=== PATIENT | female | born 1975 | race Caucasian/White ===

== ENCOUNTER 2017-04-05 03:07 | Emergency (ER) | payer OTHER ==
[~2017-04-05] VITALS: Ht 162.6 cm; Wt 59.1 kg
[~2017-04-05 03:07] MED LIST: ADVIL200 M1 PO; BENADRYL25 MG PO; CLEOCIN300 MG PO; FLEXERIL5 MG PO; MOTRIN600 MG PO; MUCINEX600 MG PO; NAPROSYN500 MG PO; NOHOMEMEDS; PERCOCET 5/31 TABLET PO; PREDNISONE20 MG PO; TESSALON PERLE100 MG PO; TRAMADOL HCL50 MG PO; TYLENOL WITH C1 EACH PO; TYLENOL325 M1 PO; ULTRAM50 MG PO; VENTOLIN HFA18 GM IH; VIBRAMYCIN100 MG PO
[2017-04-05] MEDS ORDERED: ZITHROMAX Z-PA250 MG PO (05:15)
[2017-04-05] MEDS ORDERED: PREDNISONE20 MG PO (05:15)
[2017-04-05] MEDS ORDERED: PROVENTIL HFA6.7 GM IH (05:15)
[2017-04-05 05:21] VITALS: BP 136/74
== END 2017-04-05 05:39 | disposition home or self-care (01) ==
LOC: EME 03:07
DX: J20.9 Acute bronchitis, unspecified (principal); J44.0 Chronic obstructive pulmonary disease with (acute) lower respiratory infection; F17.210 Nicotine dependence, cigarettes, uncomplicated; Z88.0 Allergy status to penicillin
CPT/HCPCS: 71046; 94640; 99281; 99284; J7512

== ENCOUNTER 2017-10-19 18:54 | Emergency (ER) | payer OTHER ==
[~2017-10-19] VITALS: Ht 162.6 cm; Wt 56.2 kg
[~2017-10-19 18:54] MED LIST changes: +PROVENTIL HFA6.7 GM IH; +ZITHROMAX Z-PA250 MG PO
[2017-10-19 18:56] VITALS: BP 140/88
[2017-10-19] MEDS ORDERED: MEDROL DOSEPAK4 MG PO (20:16)
== END 2017-10-19 20:49 | disposition home or self-care (01) ==
LOC: EME 18:54
DX: M25.531 Pain in right wrist (principal); M13.831 Other specified arthritis, right wrist; M65.4 Radial styloid tenosynovitis [de Quervain]; Z88.0 Allergy status to penicillin; F17.200 Nicotine dependence, unspecified, uncomplicated
CPT/HCPCS: 73110; 99281; 99284